=== PATIENT | female | born 1955 | race Caucasian/White ===

== ENCOUNTER 2020-07-08 08:48 | Outpatient (CLI) | payer MEDICARE, OTHER ==
--- NOTE | 2020-07-08 09:32 | MMO ---
Bilateral MAMMO Bilat Screen [facility]. CLINICAL HISTORY: Patient is 64 years old and is seen for screening. The patient has no family history of breast cancer. The patient has no personal history of cancer. VIEWS: The views performed were: bilateral craniocaudal with tomosynthesis and bilateral mediolateral oblique with tomosynthesis. FILMS COMPARED: The present examination has been compared to prior imaging studies performed at [facility] on 11/06/2014, and at [facility] Radiology Dept[facility] on 05/20/2010, 06/21/2012 and 04/26/2013. This study has been interpreted with the assistance of computer-aided detection. MAMMOGRAM FINDINGS: The breasts are heterogeneously dense, which could obscure a lesion on mammography. There are no suspicious masses, suspicious calcifications, or new areas of architectural distortion. IMPRESSION: THERE IS NO MAMMOGRAPHIC EVIDENCE OF MALIGNANCY. A ROUTINE FOLLOW-UP MAMMOGRAM IN 1 YEAR IS RECOMMENDED. THE RESULTS OF THIS EXAM WERE SENT TO THE PATIENT. ACR BI-RADS Category 1 - Negative MAMMOGRAPHY NOTE: 1. A negative mammogram report should not delay a biopsy if a dominant of clinically suspicious mass is present. 2. Approximately 10% to 15% of breast cancers are not detected by mammography. 3. Adenosis and dense breasts may obscure an underlying neoplasm. Reported by: CONNIE CHRISTIAN MD Electonically Signed: [id number]
== END 2020-07-08 08:49 | disposition home or self-care (01) ==
LOC: BICMAMMO 08:48
PROVIDERS: ATTEND Family Medicine
DX: Z12.31 Encounter for screening mammogram for malignant neoplasm of breast (principal)
CPT/HCPCS: 77063; 77067

== ENCOUNTER 2021-04-04 14:38 | Inpatient (IN) | payer MEDICARE ==
[2021-04-04 18:35] VITALS: BMI 22.2
[2021-04-04 19:34] LABS: SARS-CoV-2 NAA Rapid Test Not Detected (NotDetected)
[2021-04-04] MEDS ORDERED: Acetaminophen 650 MG Suppository PR PRN (20:38)
[2021-04-04] MEDS ORDERED: Ondansetron PF 4 MG/2 ML Vial IVP PRN (20:38)
[2021-04-04] MEDS ORDERED: Ondansetron ODT 4 MG TAB PO PRN (20:38)
[2021-04-04] MEDS ORDERED: Sodium Chloride 0.9% 1,000 ML IV SCH (21:00)
[2021-04-04] MEDS: Piperacillin/Tazobactam 3.375 GM in Sodium Chloride 0.9% 100 ML IVPB SCH (21:04)
[2021-04-04] MEDS: Nicotine 21 MG PATCH TD SCH (21:04)
[2021-04-04] MEDS: Acetaminophen 325 MG TAB PO PRN (22:06)
[2021-04-04] MEDS ORDERED: hydrOXYzine 10 MG TAB PO PRN (22:26)
[2021-04-04] MEDS ORDERED: Pantoprazole 40 MG VIAL IVP SCH (22:30)
[2021-04-05] MEDS: Piperacillin/Tazobactam 3.375 GM in Sodium Chloride 0.9% 100 ML IVPB SCH (04:52)
[2021-04-05] MEDS: Acetaminophen 325 MG TAB PO PRN ×2 (04:53→14:44)
[2021-04-05 05:05] LABS: Hemoglobin 11.4 g/dL (12.0-16.0); Mean Corpuscular HGB CONC 31.9 g/dL (32.0-36.0); Mean Platelet Volume 8.2 fL (7.4-10.4); Platelet Count 194 thou/uL (130-400); RBC Distribution Width 12.2 % (11.5-14.5); Red Blood Cell (RBC) Count 3.91 mill/uL (4.20-5.40); White Blood Cell (WBC) Count 3.2 thou/uL (4.8-10.8)
[2021-04-05 05:24] LABS: Anion Gap 6 mmol/L (10-20); BUN (Urea Nitrogen) 9 mg/dL (9.8-20.1); Calc. Creatinine Clearance 57 mL/min (70-130); Calcium 7.9 mg/dL (7.8-10.44); Carbon Dioxide 24 mmol/L (23-31); Chloride 106 mmol/L (98-107); Glucose 93 mg/dL (80-115); Potassium 3.3 mmol/L (3.5-5.1); Sodium 133 mmol/L (136-145)
[2021-04-05 05:45] LABS: Band 28 % (5-11); Eosinophils 7 % (0-10); Lymphocytes 14 % (21-51); MDiff Complete? YES; Monocytes 10 % (0-10); Neutrophil 40 % (42-75)
[2021-04-05] MEDS ORDERED: Loratadine 10 MG TAB PO PRN (08:03)
[2021-04-05] MEDS ORDERED: Sodium Chloride 0.65% Nasal 44 ML BOT EA NARE PRN (08:03)
[2021-04-05] MEDS ORDERED: Loperamide HCl 2 MG CAP PO PRN (08:03)
[2021-04-05] MEDS ORDERED: Bisacodyl 5 MG TAB PO PRN (08:03)
[2021-04-05] MEDS ORDERED: Calcium Carbonate 500 MG ChewTAB PO PRN (08:03)
[2021-04-05] MEDS ORDERED: Cepastat Lozenges 1 LOZ PO PRN (08:03)
[2021-04-05] MEDS ORDERED: Zolpidem Tartrate 5 MG TAB PO PRN (08:03)
[2021-04-05] MEDS ORDERED: Senokot S 8.6-50 MG TAB PO PRN (08:03)
[2021-04-05] MEDS ORDERED: hydrALAZINE 20 MG/ML VIAL SLOW IVP PRN (08:03)
[2021-04-05] MEDS ORDERED: GUAIFENESIN SF SOLN 200 MG/10 ML UDCUP PO PRN (08:03)
[2021-04-05] MEDS ORDERED: Pantoprazole 40 MG VIAL IVP SCH (09:00)
[2021-04-05] MEDS: Enoxaparin Sodium 40 MG/0.4 ML SYRINGE SC SCH ×2 (09:28→09:36)
[2021-04-05] MEDS: 1/2 NS w/KCL 20 mEq 1,000 ML IV SCH ×3 (09:28→18:21)
[2021-04-05] MEDS: Saccharomyces boulardii 250 MG CAP PO SCH (09:29)
[2021-04-05] MEDS: Mometasone 200 MCG/Formoterol 5 MCG 120 PUFF INHALER INH SCH ×3 (10:06→18:23)
[2021-04-05] MEDS ORDERED: Albuterol Sulfate 2.5 mg/3 ml Neb NEB PRN (10:43)
[2021-04-05] MEDS: Azithromycin 500 MG in Sodium Chloride 0.9% 250 ML 250 ML IVPB SCH (14:44)
[2021-04-05] MEDS: Pramipexole Di-HCl 0.125 MG TAB PO SCH (20:54)
[2021-04-05] MEDS: Nicotine 21 MG PATCH TD SCH (20:55)
[2021-04-06] MEDS: 1/2 NS w/KCL 20 mEq 1,000 ML IV SCH ×2 (01:30→10:51)
[2021-04-06 05:10] LABS: #Eosinphils 0.2 thou/uL (0.0-0.7); #Monocytes 0.5 thou/uL (0.11-0.59); #Neutrophils 1.9 thou/uL (1.40-6.50); %Basophils 0.9 % (0.0-1.0); %Eosinophils 5.2 % (0.0-10.0); %Lymphocytes 28.3 % (21.0-51.0); %Monocytes 13.8 % (0.0-10.0); %Neutrophils 51.9 % (42.0-75.0); Hemoglobin 11.2 g/dL (12.0-16.0); Mean Corpuscular HGB CONC 32.2 g/dL (32.0-36.0); Mean Corpuscular Hemoglobin 29.2 pg (27.0-31.0); Mean Corpuscular Volume 90.8 fL (78.0-98.0); Mean Platelet Volume 8.3 fL (7.4-10.4); Platelet Count 200 thou/uL (130-400); RBC Distribution Width 12.2 % (11.5-14.5); Red Blood Cell (RBC) Count 3.84 mill/uL (4.20-5.40); White Blood Cell (WBC) Count 3.6 thou/uL (4.8-10.8)
[2021-04-06 05:44] LABS: ALT (SGPT) 11 U/L (8-55); AST (SGOT) 16 U/L (5-34); Albumin 3.1 g/dL (3.4-4.8); Alkaline Phosphatase 44 U/L (40-110); Anion Gap 10 mmol/L (10-20); BUN (Urea Nitrogen) 6 mg/dL (9.8-20.1); Bilirubin, Total 0.2 mg/dL (0.2-1.2); Calc. Creatinine Clearance 66 mL/min (70-130); Calcium 7.8 mg/dL (7.8-10.44); Carbon Dioxide 23 mmol/L (23-31); Chloride 106 mmol/L (98-107); Globulin 2.1 g/dL (2.4-3.5); Glucose 91 mg/dL (80-115); Magnesium 1.5 mg/dL (1.6-2.6); Phosphorus 2.7 mg/dL (2.3-4.7); Protein, Total 5.2 g/dL (5.8-8.1); Sodium 135 mmol/L (136-145)
[2021-04-06] MEDS: Mometasone 200 MCG/Formoterol 5 MCG 120 PUFF INHALER INH SCH ×2 (07:52→18:20)
[2021-04-06] MEDS: Saccharomyces boulardii 250 MG CAP PO SCH (08:35)
[2021-04-06] MEDS: Enoxaparin Sodium 40 MG/0.4 ML SYRINGE SC SCH (09:08)
[2021-04-06 14:22] LABS: Troponin I 0.013 ng/mL (< 0.028)
[2021-04-06] MEDS: Azithromycin 500 MG in Sodium Chloride 0.9% 250 ML 250 ML IVPB SCH (15:33)
[2021-04-06 17:23] LABS: Troponin I Less than 0.010 ng/mL (< 0.028)
[2021-04-06 21:24] LABS: Troponin I Less than 0.010 ng/mL (< 0.028)
[2021-04-06] MEDS: Nicotine 21 MG PATCH TD SCH (21:30)
[2021-04-06] MEDS: Pramipexole Di-HCl 0.125 MG TAB PO SCH (21:30)
[2021-04-06] MEDS: Acetaminophen 325 MG TAB PO PRN (21:34)
[2021-04-07] MEDS: Acetaminophen 325 MG TAB PO PRN (06:20)
[2021-04-07] MEDS: Mometasone 200 MCG/Formoterol 5 MCG 120 PUFF INHALER INH SCH (06:57)
[2021-04-07 08:35] VITALS: TEMP 97.8
[2021-04-07] MEDS ORDERED: Regadenoson 0.4 MG/5 ML SYRINGE ONE (09:08)
[2021-04-07] MEDS: Enoxaparin Sodium 40 MG/0.4 ML SYRINGE SC SCH (09:48)
[2021-04-07] MEDS: Saccharomyces boulardii 250 MG CAP PO SCH (09:48)
[2021-04-07 11:49] VITALS: BP 168/76
[2021-04-07] MEDS: Azithromycin 500 MG in Sodium Chloride 0.9% 250 ML 250 ML IVPB SCH (14:13)
== END 2021-04-07 18:08 | disposition home or self-care (01) | DRG 372 ==
LOC: 2SW 18:04 → OBSVTOIN 20:41
PROVIDERS: ADMIT Internal Medicine; ATTEND Internal Medicine
DX: A04.5 Campylobacter enteritis (principal); E87.1 Hypo-osmolality and hyponatremia; J44.9 Chronic obstructive pulmonary disease, unspecified; F17.210 Nicotine dependence, cigarettes, uncomplicated; E87.6 Hypokalemia; D64.9 Anemia, unspecified; J45.30 Mild persistent asthma, uncomplicated; G25.81 Restless legs syndrome; K21.9 Gastro-esophageal reflux disease without esophagitis; E86.0 Dehydration; D72.825 Bandemia; R07.9 Chest pain, unspecified; Z20.822 Contact with and (suspected) exposure to COVID-19; D72.819 Decreased white blood cell count, unspecified; Z88.2 Allergy status to sulfonamides; Z90.89 Acquired absence of other organs
CPT/HCPCS: 36415; 78452; 80048; 80053; 83630; 83735; 84100; 84484; 85025; 87045; 87046; 87077; 87186; 87324; 87427; 87449; 93017; A9500; C9113; J0456; J1650; J2543; J2785; J3480; J3490; J7050; U0002; U0005

== ENCOUNTER 2022-02-18 11:08 | Outpatient (CLI) | payer MEDICARE | END 2022-02-18 11:09 | disposition home or self-care (01) | LOC: BICMAMMO 11:08 | PROVIDERS: ATTEND Family Medicine | DX: Z12.31 Encounter for screening mammogram for malignant neoplasm of breast (principal) | CPT/HCPCS: 77063; 77067 ==

== ENCOUNTER 2022-12-13 08:54 | Outpatient (CLI) | payer MEDICARE | END 2022-12-13 08:55 | disposition home or self-care (01) | LOC: CT 08:54 | PROVIDERS: ATTEND Nurse Practitioner Family | DX: R91.1 Solitary pulmonary nodule (principal) | CPT/HCPCS: 71250 ==

== ENCOUNTER 2022-12-28 11:45 | Outpatient (CLI) | payer MEDICARE | END 2022-12-28 11:46 | disposition home or self-care (01) | LOC: PET 11:45 | PROVIDERS: ATTEND Internal Medicine | DX: R91.1 Solitary pulmonary nodule (principal) | CPT/HCPCS: 78815; A9552 ==

== ENCOUNTER 2023-05-19 08:14 | Outpatient (CLI) | payer MEDICARE | END 2023-05-19 08:15 | disposition home or self-care (01) | LOC: RAD 08:14 | PROVIDERS: ATTEND Internal Medicine | DX: R06.00 Dyspnea, unspecified (principal); R91.1 Solitary pulmonary nodule | CPT/HCPCS: 71046 ==

== ENCOUNTER 2023-07-22 10:45 | Outpatient (CLI) | payer MEDICARE | END 2023-07-22 10:46 | disposition home or self-care (01) | LOC: BICMAMMO 10:45 | PROVIDERS: ATTEND Nurse Practitioner Family | DX: Z12.31 Encounter for screening mammogram for malignant neoplasm of breast (principal) | CPT/HCPCS: 77063; 77067 ==

== ENCOUNTER 2023-11-14 10:42 | Outpatient (CLI) | payer MEDICARE | END 2023-11-14 10:43 | disposition home or self-care (01) | LOC: BICCT 10:42 | PROVIDERS: ATTEND Internal Medicine | DX: R91.1 Solitary pulmonary nodule (principal); R91.8 Other nonspecific abnormal finding of lung field; J98.11 Atelectasis | CPT/HCPCS: 71250 ==

== ENCOUNTER 2024-05-01 10:37 | Outpatient (CLI) | payer MEDICARE | END 2024-05-01 10:38 | disposition home or self-care (01) | LOC: BICCT 10:37 | PROVIDERS: ATTEND Student in an Organized Health Care Education/Training Program | DX: R91.1 Solitary pulmonary nodule (principal) | CPT/HCPCS: 71250 ==

== ENCOUNTER 2024-07-23 10:25 | Outpatient (CLI) | payer MEDICARE | END 2024-07-23 10:26 | disposition home or self-care (01) | LOC: BICMAMMO 10:25 | PROVIDERS: ATTEND Nurse Practitioner Family | DX: Z12.31 Encounter for screening mammogram for malignant neoplasm of breast (principal) | CPT/HCPCS: 77063; 77067 ==

== ENCOUNTER 2024-07-24 08:41 | Outpatient (CLI) | payer MEDICARE ==
[2024-07-24] MEDS ORDERED: Iopamidol 370 76% 100 ML VIAL ONE (10:36)
== END 2024-07-24 08:42 | disposition home or self-care (01) ==
LOC: BICCT 08:41
PROVIDERS: ATTEND Physician Assistant Medical
DX: R10.12 Left upper quadrant pain (principal); R14.0 Abdominal distension (gaseous); N94.89 Other specified conditions associated with female genital organs and menstrual cycle
CPT/HCPCS: 74177; Q9967